=== PATIENT | female | born 1955 | race Caucasian/White ===

== ENCOUNTER → 2016-12-31 | Outpatient (CLI) | payer OTHER | LOC: EMI 12-20 08:15 | DX: M54.2 Cervicalgia (principal); M54.12 Radiculopathy, cervical region; M50.223 Other cervical disc displacement at C6-C7 level; M99.71 Connective tissue and disc stenosis of intervertebral foramina of cervical region | CPT/HCPCS: 72141 ==

== ENCOUNTER → 2020-10-25 | Outpatient (CLI) | payer OTHER ==
[~2020-10-25] MED LIST: ALENDRONATE SOD70 MG PO; AMOX TR-K CLV1 EAC4 PO; ARIMIDEX1 MG PO; ASPIR-LOW81 MG PO; BUSPIRONE HCL15 MG PO; CEFUROXIME500 MG PO; CELEXA20 MG PO; CLARITIN10 MG PO; CREOMULSIO20 MG/15 M PO; CRESTOR10 MG PO; FLONASE 0.05% N16 GM; K-DUR TAB 10 M10 MEQ PO; LASIX20 MG PO; MORPHINE SULFAT15 M1 PO; NEURONTIN 100100 MG PO; NICOTINE PATCH1 EAC1 TD; NICOTINE PATCH1 EAC5 TD; PLAVIX 75 MG TA75 MG PO; PREDNISONE10 MG PO; ROPINIROLE HCL1 MG PO; TOPAMAX50 MG PO; ULTRAM50 MG PO; VANCOCIN 125 M125 MG PO; VANCOMYCIN HCL125 MG PO; VITAMIN B-121000 MC3 PO; VITAMIN C500 M1 PO; VITAMIN D32000 UNI1 PO; ZOFRAN4 MG PO
== END ==
LOC: HEART 5 07:28
DX: I25.10 Atherosclerotic heart disease of native coronary artery without angina pectoris (principal); G89.29 Other chronic pain; R94.39 Abnormal result of other cardiovascular function study
CPT/HCPCS: 78452; A9502; J2785

== ENCOUNTER → 2020-12-07 | Outpatient (CLI) | payer OTHER | LOC: KOH-I 09:13 | DX: M54.5 Low back pain (principal); M48.061 Spinal stenosis, lumbar region without neurogenic claudication; M51.36 Other intervertebral disc degeneration, lumbar region | CPT/HCPCS: 72148 ==

== ENCOUNTER 2021-08-31 14:56 | Emergency (ER) | payer OTHER ==
[2021-08-31 16:30] LABS: HEMOGLOBIN 13.7 gm/dl (12.3-15.3); RED BLOOD COUNT 4.49 M/UL (4.00-5.10); WHITE BLOOD COUNT 10.5 K/UL (4.5-11.0)
[2021-08-31 16:45] LABS: BUN/CREATININE RATIO 18 (0-10)
[2021-08-31] MEDS ORDERED: ZYRTEC10 MG PO (22:39)
[2021-08-31] MEDS ORDERED: MECLIZINE HCL25 MG PO (22:39)
[2021-08-31] MEDS ORDERED: AFRIN15 M1 (22:39)
== END 2021-08-31 23:29 | disposition home or self-care (01) ==
LOC: ER1 14:56
PROVIDERS: Physician Assistant
DX: R42 Dizziness and giddiness (principal); R55 Syncope and collapse; H65.93 Unspecified nonsuppurative otitis media, bilateral; R51.9 Headache, unspecified; F17.200 Nicotine dependence, unspecified, uncomplicated; Z20.822 Contact with and (suspected) exposure to COVID-19; I25.10 Atherosclerotic heart disease of native coronary artery without angina pectoris; I50.9 Heart failure, unspecified; I11.9 Hypertensive heart disease without heart failure; J44.9 Chronic obstructive pulmonary disease, unspecified; Z85.3 Personal history of malignant neoplasm of breast
CPT/HCPCS: 70450; 71045; 80053; 81001; 82550; 82553; 83874; 84484; 85025; 93005; 99284; U0002